=== PATIENT | female | born 1975 | race Caucasian/White ===

== ENCOUNTER 2019-11-18 01:40 | Emergency (ER) | payer OTHER ==
[~2019-11-18] VITALS: Ht 172.7 cm; Wt 108.9 kg
[2019-11-18 01:50] VITALS: BP 105/60
--- NOTE | 2019-11-18 01:55 | NUR ---
GALA THOMAS CALLED [facility]OM[facility] TO LET THEM KNOW OF THE DOG BITE. STATES WILL [employer] AND CALL US BACK.
[2019-11-18] MEDS ORDERED: LIDOCAINE 1% VIAL ONE (01:56)
[2019-11-18] MEDS ORDERED: AUGMENTIN 875-125 TABLET PO STA (01:56)
--- NOTE | 2019-11-18 02:00 | NUR ---
GALA THOMAS [facility] [employer] CALLED BACK, STATES THAT PATIENT NEEDS TO CALL [facility] OFFICE WHEN THEY GET BACK TO [place] SO THEY CAN LOCATE THE DOG, PATIENT NOTIFIED
[2019-11-18] MEDS ORDERED: AUGMENTIN 875-125 TABLET ONE (02:01)
--- NOTE | 2019-11-18 02:03 | ER.PDOC ---
General Chief Complaint: Animal Bite Stated Complaint: DOG BITE Time seen by MD: 01:56 Source: patient Exam Limitations: no limitations History of Present Illness Initial Comments her dogs got into a fight and she tried to break up the fight and her dog bit her in the r hand, no other injury, this occurred about one hour ago, tetanus is utd and her dogs immunizations are utd. patient has full sensation and movement of fingers and hand, Onset: just prior to arrival Where: home Animal: dog Animal Appearance: appeared well Animal Immunizations: UTD Animal Disposition: Animal Known Context of Attack: other Severity of Injury: bitten Injury Location: upper extremity Allergies: Coded Allergies: NSAIDS (Non-Steroidal Anti-Inflamma (Verified Allergy, Unknown, 04/19/19) Past Medical History Medical History: no pertinent history Surgical History: gastric bypass Social History Alcohol Use: occassionally Drug Use: none Review of Systems Ears: denies pain Nose: denies pain Mouth: denies pain Respiratory: denies cough, denies shortness of breath Cardiovascular: denies chest pain Gastrointestinal: denies abdominal pain, denies vomiting Musculoskeletal: denies neck pain Skin: denies rash Psychiatric/Neurological: denies headache Physical Exam General Appearance: alert, no distress Skin: puncture, laceration Neuro/Vascular/Tendon: no vascular compromise, sensation nml, oriented x3, nml ROM Psych: mood/affect nml HEENT: atraumatic Neck: uninjured Resp/CVS: chest non-tender Abdomen: nml inspection Back: nml inspection Comments puncture wound dorsum r hand, and laceration on the hypothenar area about one inch long, neuro vasc tendon intact. no fb. ED LACERATION WOUND REPAIR # of Wounds/Lacerations Presen: 1 Wound Length (cm): 3 Wound cleaned: betadine Distal NVT: neuro intact, vasc intact Anesthesia type: local Anesthesia: 1% Lidocaine Wound's Depth, Shape: superficial Irrigated w/ Saline (ccs): 100 Wound Explored: clean Tendon Intact: Yes Suture Size/Type: 3:0 Suture Style: interupted Number of Sutures: 3 Layer Closure?: No Retention sutures placed: No Sterile Dressing Applied?: Yes Sling Applied?: No Results/Orders Results/Orders Orders - BRITTANY EDWARDS MD Amoxicillin/Potassium Clav (Augmentin 87 (11/18/19 01:56) Vital Signs Date Time Temp Pulse Resp B/P (MAP) Pulse Ox O2 Delivery O2 Flow Rate FiO2 11/18/19 01:50 98.6 98 18 97 11/18/19 01:50 98.6 98 18 97 Room Air 11/18/19 01:50 98.6 98 18 Progress Progress informed patient that sutures do increase chance of infection patient does want sutures placed. Departure Time of Disposition: 02:25 Disposition: 01 HOME, SELF-CARE Impression: Primary Impression: Dog bite Additional Impressions: Laceration Puncture wound Condition: Stable Patient Instructions: Animal Bite, [id number], Laceration Care, Adult Referrals: PCP,UNKNOWN (PCP) PRIMARY CARE PROVIDER RAJI LANDAVERDE MD Additional Instructions: keep clean and dry with antibiotic ointment and sterile dressing daily until healed, sutures out in 10 to 14 days. Duration or Time Spent with Pa: 15 Problem Qualifiers BRITTANY EDWARDS MD Nov 18, 2019 02:03
[2019-11-18] MEDS ORDERED: TRIPLE ANTIBIOTIC OINTMENT TP ONE (02:25)
--- NOTE | 2019-11-18 02:36 | NUR ---
SUTURES PT RECEIVED 3 SUTURES TO THE RIGHT LATERAL PALM. SUTURES THEN COVERED WITN NEOSPORIN AND A DRESSING PER DR. EDWARDS.
== END 2019-11-18 02:34 | disposition home or self-care (01) ==
LOC: ER 01:40
DX: S61.411A Laceration without foreign body of right hand, initial encounter (principal); Z98.84 Bariatric surgery status; Z88.6 Allergy status to analgesic agent; W54.0XXA Bitten by dog, initial encounter; Y93.89 Activity, other specified; Y92.098 Other place in other non-institutional residence as the place of occurrence of the external cause; Y99.8 Other external cause status
CPT/HCPCS: 12002; 99283; A4649; J2001